=== PATIENT | male | born 1965 | race Caucasian/White ===

== ENCOUNTER 2018-02-11 20:09 | Inpatient (IN) | payer BC ==
[2018-02-11] MEDS ORDERED: SODIUM CHLORIDE 0.9% 1,000 ML IV STA (20:44)
[2018-02-11] MEDS ORDERED: KETOROLAC 30 MG/ML 1 ML VIAL IVP STA (20:44)
[2018-02-11 21:17] LABS: Basophils % (A) 0 %; Eosinophils # (A) 0.4 k/uL (0-0.7); Eosinophils % (A) 3 %; HCT 51.1 % (39.0-53.0); HGB 17.5 gm/dL (13.0-17.5); Lymphocytes # (A) 2.2 k/uL (1.0-4.8); Lymphocytes % (A) 16 %; MCH 30.2 pg (25.0-35.0); MCHC 34.3 g/dL (31.0-37.0); Mean Platelet Volume 6.9; Monocytes # (A) 0.8 k/uL (0-1.0); Monocytes % (A) 6 %; Neutrophils # (A) 9.9 k/uL (1.3-7.7); Neutrophils % (A) 74 %; Platelet Count 229 k/uL (150-450); RBC 5.81 m/uL (4.30-5.90); RDW 13.3 % (11.5-15.5); WBC 13.5 k/uL (3.8-10.6)
[2018-02-11 21:26] LABS: ALT 27 U/L (21-72); AST 18 U/L (17-59); Albumin 3.9 g/dL (3.5-5.0); Alkaline Phosphatase 90 U/L (38-126); Anion Gap 12 mmol/L; Blood Urea Nitrogen 14 mg/dL (9-20); Calcium 9.5 mg/dL (8.4-10.2); Carbon Dioxide 23 mmol/L (22-30); Chloride 103 mmol/L (98-107); Glucose 216 mg/dL (74-99); Sodium 138 mmol/L (137-145); Total Bilirubin 0.8 mg/dL (0.2-1.3); Total Protein 7.2 g/dL (6.3-8.2)
--- NOTE | 2018-02-11 21:32 | ED ---
Abdominal Pain HPI - General Chief Complaint: Abdominal Pain Stated Complaint: Abdominal Pain Time Seen by Provider: 02/11/18 20:17 Source: patient, RN notes reviewed, old records reviewed Mode of arrival: ambulatory Limitations: no limitations - History of Present Illness Initial Comments: This patient is a 52-year-old male presents emergency Department chief complaint of not having a full bowel movement over the past 6 days. He reports that he has had some clear watery diarrhea however. He reports that he has had no previous history of comes patient. Surgical history includes cholecystectomy , and he did have a colonoscopy last year by Dr. Bowman. Patient reports that he's had chills but denies any fever. He states that he has been increasingly worse over the past day but he has been unable to sleep due to the pain for the past week. Patient states that he tried laxative and was only able to produce the watery stools. Patient reports no vomiting. He reports that he's had an increase in belching as well. No vomiting. Upon further questioning Patient also relates that he does drink approximately half fifth 4 times a week. - Related Data Home Medications Medication Instructions Recorded Confirmed Carvedilol [Coreg] 6.25 mg PO BID 07/31/14 02/11/18 Digoxin [Lanoxin] 250 mcg PO DAILY 07/31/14 02/11/18 Spironolactone [Aldactone] 25 mg PO QAM 07/31/14 02/11/18 metFORMIN HCL [Glucophage] 1,000 mg PO DAILY 05/18/15 02/11/18 Benazepril [Lotensin] 10 mg PO BID 09/22/16 02/11/18 Liraglutide [Victoza 2-Maury] 0.9 mg SQ DAILY 09/22/16 02/11/18 metFORMIN HCL [Glucophage] 500 mg PO HS 09/22/16 02/11/18 Aspirin 162.5 mg PO DAILY 02/11/18 02/11/18 Allergies Allergy/AdvReac Type Severity Reaction Status Date / Time No Known Allergies Allergy Verified 02/11/18 20:30 Review of Systems ROS Statement: Those systems with pertinent positive or pertinent negative responses have been documented in the HPI. ROS Other: All systems not noted in ROS Statement are negative. Past Medical History Past Medical History: Diabetes Mellitus, Hyperlipidemia, Hypertension History of Any Multi-Drug Resistant Organisms: None Reported Additional Past Surgical History / Comment(s): right 2nd toe amputation, eye surgery Past Psychological History: No Psychological Hx Reported Smoking Status: Current every day smoker Past Alcohol Use History: Daily Past Drug Use History: None Reported - Past Family History Mother Family Medical History: No Reported History General Exam - General Exam Comments Initial Comments: This patient is a pleasant 52-year-old male. No acute distress. Limitations: no limitations General appearance: alert, in no apparent distress Head exam: Present: atraumatic, normocephalic, normal inspection Eye exam: Present: normal appearance, PERRL, EOMI. Absent: scleral icterus, conjunctival injection, periorbital swelling ENT exam: Present: normal exam, mucous membranes moist Neck exam: Present: normal inspection. Absent: tenderness, meningismus, lymphadenopathy Respiratory exam: Present: normal lung sounds bilaterally. Absent: respiratory distress, wheezes, rales, rhonchi, stridor Cardiovascular Exam: Present: regular rate, normal rhythm, normal heart sounds. Absent: systolic murmur, diastolic murmur, rubs, gallop, clicks GI/Abdominal exam: Present: soft, tenderness (Right lower quadrant tenderness), hyperactive bowel sounds. Absent: distended, guarding, rebound, rigid, normal bowel sounds Extremities exam: Present: normal inspection, full ROM, normal capillary refill. Absent: tenderness, pedal edema, joint swelling, calf tenderness Back exam: Present: normal inspection Neurological exam: Present: alert, oriented X3, CN II-XII intact Psychiatric exam: Present: normal affect, normal mood Skin exam: Present: warm, dry, intact, normal color. Absent: rash Course Vital Signs 02/11/18 02/11/18 20:13 21:44 Temperature 97.4 F L Pulse Rate 102 H 83 Respiratory 20 18 Rate Blood Pressure 125/92 136/76 O2 Sat by Pulse 100 96 Oximetry Medical Decision Making - Medical Decision Making This patient is a 52-year-old male presents emergency room chief complaint of not able to have a bowel movement and lower abdominal pain for the past 6 days. He did have some right lower quadrant tenderness. He reports no fever but did say he was slightly chilled. He did test and tenderness on exam. He was given IV fluids labwork obtained. An expectantly patient was found to have very elevated amylase and lipase of 640 and 19,000 respectively. Upon further questioning he does relate that he drinks proximally half fifths 4 times a week patient then underwent computed tomography scan. CT did show some mild inflammatory changes around the pancreas but no other significant findings to relate her patient's abdominal pain, and changes in bowel habits. At this time with the elevated amylase and lipase keep the patient in the hospital for IV hydration. Nothing by mouth. I'll also order Ativan protocol patient started to go through withdrawals. Discussed with Lubna alas nurse practitioner for [facility]. - Lab Data Result diagrams: 02/11/18 21:05 02/11/18 21:05 Lab Results 02/11/18 02/11/18 02/11/18 Range/Units 21:05 21:05 21:37 WBC 13.5 H (3.8-10.6) k/uL RBC 5.81 (4.30-5.90) m/uL Hgb 17.5 (13.0-17.5) gm/dL Hct 51.1 (39.0-53.0) % MCV 88.0 (80.0-100.0) fL MCH 30.2 (25.0-35.0) pg MCHC 34.3 (31.0-37.0) g/dL RDW 13.3 (11.5-15.5) % Plt Count 229 (150-450) k/uL Neutrophils % 74 % Lymphocytes % 16 % Monocytes % 6 % Eosinophils % 3 % Basophils % 0 % Neutrophils # 9.9 H (1.3-7.7) k/uL Lymphocytes # 2.2 (1.0-4.8) k/uL Monocytes # 0.8 (0-1.0) k/uL Eosinophils # 0.4 (0-0.7) k/uL Basophils # 0.0 (0-0.2) k/uL Sodium 138 (137-145) mmol/L Potassium 4.0 (3.5-5.1) mmol/L Chloride 103 (98-107) mmol/L Carbon Dioxide 23 (22-30) mmol/L Anion Gap 12 mmol/L BUN 14 (9-20) mg/dL Creatinine 0.75 (0.66-1.25) mg/dL Est GFR (CKD-EPI)AfAm >90 (>60 ml/min/1.73 sqM) Est GFR (CKD-EPI)NonAf >90 (>60 ml/min/1.73 sqM) Glucose 216 H (74-99) mg/dL Calcium 9.5 (8.4-10.2) mg/dL Total Bilirubin 0.8 (0.2-1.3) mg/dL AST 18 (17-59) U/L ALT 27 (21-72) U/L Alkaline Phosphatase 90 (38-126) U/L Total Protein 7.2 (6.3-8.2) g/dL Albumin 3.9 (3.5-5.0) g/dL Amylase 671 H* (30-110) U/L Lipase 81069 H (23-300) U/L Urine Color Yellow Urine Appearance Clear (Clear) Urine pH 5.5 (5.0-8.0) Ur Specific Irving 1.022 (1.001-1.035) Urine Protein Trace H (Negative) Urine Glucose (UA) 3+ H (Negative) Urine Ketones Negative (Negative) Urine Blood Negative (Negative) Urine Nitrite Negative (Negative) Urine Bilirubin Negative (Negative) Urine Urobilinogen <2.0 (<2.0) mg/dL Ur Leukocyte Esterase Negative (Negative) - Radiology Data Radiology results: report reviewed There is left renal cortical cyst is increased compared to old exam. Pain increases diffusely increased compared to old exam the could relate to nonspecific bowel inflammatory process. No pancreatic mass seen. No dilated ducts. No cause for lower abdominal pain. Disposition Clinical Impression: Pancreatitis, History of ETOH abuse Disposition: ADMITTED IP TO THIS [facility] Condition: Stable Referrals: Chris Barros DO [Primary Care Provider] - 1-2 days Time of Disposition: 22:40
[2018-02-11 21:38] LABS: Amylase 671 U/L (30-110)
[2018-02-11] MEDS ORDERED: RX INFO: IV CONTRAST WAS GIVEN 1 EACH MISC MISCELLANE PRN (21:38)
[2018-02-11 21:40] LABS: Appearance,Urine Clear (Clear); Bilirubin,Urine Negative (Negative); Blood,Urine Negative (Negative); Color,Urine Yellow; Glucose,Urine (UA) 3+ (Negative); Ketones,Urine Negative (Negative); Leukocyte Esterase,Urine Negative (Negative); Nitrite,Urine Negative (Negative); PH, Urine 5.5 (5.0-8.0); Protein,Urine Trace (Negative); Specific Gravity,Urine 1.022 (1.001-1.035); Urobilinogen,Urine <2.0 mg/dL (<2.0)
--- NOTE | 2018-02-11 21:40 | XR ---
EXAMINATION TYPE: XR KUB DATE OF EXAM: 02/11/2018 COMPARISON: 05/18/2015 HISTORY: Abdominal pain TECHNIQUE: 3 views FINDINGS: There is no sign of intestinal obstruction or pneumoperitoneum. Fecal pattern is normal. Abdon wel gas pattern appears normal. Lung bases are clear. There are no pathologic calcifications over the kidneys. IMPRESSION: Nonacute abdomen. No change.
[2018-02-11 21:46] LABS: Lipase 19002 U/L (23-300)
--- NOTE | 2018-02-11 22:21 | CT ---
EXAMINATION TYPE: CT abdomen pelvis w con DATE OF EXAM: 02/11/2018 COMPARISON: 05/18/2015 HISTORY: Abdominal pain CT DLP: mGycm Automated exposure control for dose reduction was used. TECHNIQUE: Helical acquisition of images was performed from the lung bases through the pelvis. CONTRAST: The contrast was Omnipaque 100 mL. FINDINGS: Lung bases are clear of consolidation. There is no pleural effusion. There is no pericardial effusion . Heart is borderline enlarged. Liver and spleen appear normal. Bile ducts are not dilated. Gallbladder is absent. There is very slight bulkiness of the pancreas. This is a change compared to old exam. There is sugge stion of minimal edema in the peripancreatic fat. There is no adrenal mass. Kidneys show satisfactory contrast opacification. There is a 2 cm cyst in t he lateral left kidney. There is no hydronephrosis. There is no retroperitoneal adenopathy. There is no ascites. I see no intestinal wall thickening. There are no dilated loops. I see no sign of appendi citis. The bony structures are intact. There is some spurring in the lumbar spine. I see no focal bon y destructive process. IMPRESSION: THERE IS A LEFT RENAL CORTICAL CYSTS THAT IS INCREASED COMPARED TO OLD EXAM. PANCREAS IS DIFFUSELY IN CREASED COMPARED TO OLD EXAM THAT COULD RELATE TO NONSPECIFIC MILD INFLAMMATORY PROCESS. NO PANCREATI C MASS SEEN. NO DILATED DUCTS. I DO NOT SEE A CAUSE FOR LOWER ABDOMINAL PAIN.
[2018-02-11] MEDS: SODIUM CHLORIDE 0.9% 1,000 ML IV SCH (22:28)
[2018-02-11] MEDS ORDERED: LORazepam 2 MG/ML INJ IV PRN ×3 (22:34)
[2018-02-11] MEDS ORDERED: THIAMINE 100 MG/ML 2 ML VIAL IM STA (22:34)
[2018-02-11] MEDS ORDERED: KETOROLAC 30 MG/ML 1 ML VIAL IVP PRN (22:37)
[2018-02-11] MEDS ORDERED: HYDROmorphone 0.5 MG/0.5 ML SYRINGE IVP PRN (22:37)
[2018-02-11] MEDS ORDERED: ONDANSETRON 4 MG/2 ML VIAL IVP PRN (22:37)
[2018-02-11] MEDS ORDERED: NALOXONE 0.4 MG/ML 1 ML VIAL IV PRN (22:37)
[2018-02-11] MEDS ORDERED: MORPHINE SULFATE 4 MG/ML SYRINGE IV PRN (22:37)
[2018-02-12] MEDS ORDERED: NICOTINE 21MG/24HR PATCH TRANSDERM STA (00:38)
[2018-02-12] MEDS: THIAMINE 100 MG TAB PO SCH ×3 (03:58→18:08)
[2018-02-12 06:25] VITALS: BMI 29.4
[2018-02-12 07:07] LABS: Glucose,Whole Blood 141 mg/dL (75-99)
[2018-02-12] MEDS: metFORMIN 500 MG TAB PO SCH ×2 (09:52→21:29)
[2018-02-12] MEDS: PANTOPRAZOLE 40 MG/10 ML VIAL IV SCH (09:52)
[2018-02-12] MEDS: CARVEDILOL 6.25 MG TAB PO SCH ×2 (09:53→18:08)
[2018-02-12] MEDS: SODIUM CHLORIDE 0.9% 1,000 ML IV SCH ×2 (09:53→18:08)
[2018-02-12] MEDS: LISINOPRIL 20 MG TAB PO SCH (09:54)
[2018-02-12] MEDS: LIRAGLUTIDE SQ SCH (09:54)
[2018-02-12] MEDS: ASPIRIN 81 MG PO SCH (09:55)
[2018-02-12] MEDS: DIGOXIN 250 MCG TAB PO SCH (09:55)
[2018-02-12] MEDS: SPIRONOLACTONE 25 MG TAB PO SCH (09:55)
[2018-02-12] MEDS ORDERED: IOHEXOL 350 MG/ML 25 ML BOTTLE (ORAL USE) PO PRN (10:51)
[2018-02-12 11:40] LABS: Glucose,Whole Blood 128 mg/dL (75-99)
[2018-02-12 17:18] LABS: Glucose,Whole Blood 133 mg/dL (75-99)
[2018-02-12] MEDS ORDERED: TEMAZEPAM 15 MG CAP PO PRN (17:35)
[2018-02-12] MEDS: MEROPENEM 2 GM in SODIUM CHLORIDE 0.9% 100 ML IVPB SCH (18:40)
--- NOTE | 2018-02-12 19:04 | HP ---
HISTORY AND PHYSICAL DATE OF SERVICE: 02/12/2018 I am covering for Dr. Barros. CHIEF COMPLAINT: Abdominal pain. HISTORY OF PRESENT ILLNESS: This 52-year-old gentleman being followed by Dr. Barros in the outpatient setting has a history of chest pain, diabetes mellitus, hypertension, hyperlipidemia. Patient apparently has a significant history of alcohol intake, also. The patient was complaining of abdominal pain. The patient was also complaining of some watery diarrhea. The pain was felt in the upper abdomen, a bandlike feeling, and in the ER the patient underwent a CT scan of the abdomen and pelvis which showed a left renal cortical cyst that had increased apparently and diffuse pancreatic nonspecific inflammation. The patient also had multiple evaluations which showed WBC 13.5, amylase 671, lipase 19,002. Patient was admitted for evaluation and treatment. There is no history of any fever, rigor or chills. No history of headache, loss of consciousness, seizures at this time. PAST MEDICAL HISTORY: 1. History of diabetes mellitus. 2. Hypertension. 3. Hyperlipidemia. 4. History of chest pain. MEDICATIONS PRIOR TO ADMISSION: 1. Metformin 500 mg p.o. at bedtime. 2. Glucophage 1000 mg p.o. daily. 3. Aldactone 25 mg p.o. each morning. 4. Victoza 0.9 subcutaneously daily. 5. Lanoxin 250 mcg p.o. daily. 6. Coreg 6.25 mg p.o. b.i.d. 7. Lotensin 10 mg p.o. b.i.d. 8. Aspirin 162.5 mg p.o. daily. ALLERGIES: NONE. FAMILY HISTORY: No history of strokes or MIs in the family. SOCIAL HISTORY: History of smoking. Alcohol as mentioned. REVIEW OF SYSTEMS: ENT: No diminished hearing. No diminished vision. CARDIOVASCULAR SYSTEM: As mentioned earlier. RESPIRATORY SYSTEM: As mentioned earlier. GI: As mentioned earlier. : No dysuria or retention. NERVOUS SYSTEM: No numbness, weakness. ALLERGY/IMMUNOLOGY: No asthma, hayfever. MUSCULOSKELETAL: As mentioned earlier. HEMATOLOGY/ONCOLOGY: No history of anemia. ENDOCRINE: Diabetes mellitus. CONSTITUTIONAL: As mentioned earlier. DERMATOLOGY: Negative. RHEUMATOLOGY: Negative. PSYCHIATRY: As mentioned earlier. PHYSICAL EXAMINATION: Patient is alert, oriented x3. The pulse is 75, blood pressure 122/73, respiration 18, temperature 97 degrees, pulse ox 94% on room air. HEENT: Conjunctivae normal. NECK: No jugular venous distention. CARDIOVASCULAR SYSTEM: S1, S2 muffled. RESPIRATORY SYSTEM: Breath sounds diminished at the bases. A few scattered rhonchi and crackles. ABDOMEN: Soft. Mild diffuse tenderness in the epigastrium present. No mass palpable. LEGS: No edema. No swelling. NERVOUS SYSTEM: Higher functions as mentioned earlier. Moves all 4 limbs. No focal motor or sensory deficit. LYMPHATICS: No lymph node palpable in neck, axillae or groin. SKIN: No ulcer, rash, bleeding. LABS: WBC 13.4, hemoglobin 17.5. Amylase 671, lipase 19,002. ASSESSMENT: 1. Acute severe pancreatitis with abdominal pain. 2. History of ethanol. 3. Increased white count. 4. Diabetes mellitus, type 2. 5. Hypertension. 6. Hyperlipidemia. 7. History of cholecystectomy. 8. History of cardiac catheterization. 9. History of right second toe amputation. 10.History of nicotine dependence. 11.FULL CODE. RECOMMENDATIONS AND DISCUSSION: In this 52-year-old gentleman who presented with multiple complex medical issues, we will monitor the patient closely, continue the current medications, continue with symptomatic treatment. Otherwise at this time I recommend monitoring blood sugars closely. Otherwise, IV fluids. I also recommend repeat labs and a surgical evaluation. CT scan did not show any gallstones obviously. I would also recommend resuming the home medications and CIWA protocol. Will increase the IV fluids. CT scan is reviewed. Further recommendations to follow. ANURADHA / HARJEET: [id number] /
[2018-02-12 20:02] LABS: Glucose,Whole Blood 149 mg/dL (75-99)
[2018-02-12] MEDS ORDERED: MORPHINE ORAL SOLN 10 MG/5 ML CUP PO PRN (20:08)
[2018-02-12] MEDS: HEPARIN SODIUM,PORCINE 5,000 UNIT/ML 1 ML VIAL SQ SCH (21:29)
[2018-02-12] MEDS: ALPRAZolam 0.25 MG TAB PO PRN (21:33)
[2018-02-13] MEDS: MEROPENEM 2 GM in SODIUM CHLORIDE 0.9% 100 ML IVPB SCH ×3 (00:46→16:06)
[2018-02-13] MEDS: SODIUM CHLORIDE 0.9% 1,000 ML IV SCH ×3 (04:16→23:47)
[2018-02-13 07:12] LABS: Glucose,Whole Blood 136 mg/dL (75-99)
[2018-02-13 07:42] LABS: Basophils # (A) 0.1 k/uL (0-0.2); Basophils % (A) 1 %; Eosinophils # (A) 0.3 k/uL (0-0.7); Eosinophils % (A) 3 %; HCT 50.6 % (39.0-53.0); HGB 17.1 gm/dL (13.0-17.5); Lymphocytes % (A) 19 %; MCH 29.9 pg (25.0-35.0); MCHC 33.9 g/dL (31.0-37.0); MCV 88.3 fL (80.0-100.0); Mean Platelet Volume 6.9; Monocytes # (A) 0.4 k/uL (0-1.0); Monocytes % (A) 4 %; Neutrophils # (A) 7.7 k/uL (1.3-7.7); Neutrophils % (A) 72 %; Platelet Count 206 k/uL (150-450); RBC 5.73 m/uL (4.30-5.90); RDW 13.2 % (11.5-15.5); WBC 10.7 k/uL (3.8-10.6)
[2018-02-13] MEDS: LISINOPRIL 20 MG TAB PO SCH (07:50)
[2018-02-13] MEDS: metFORMIN 500 MG TAB PO SCH ×2 (07:50→21:12)
[2018-02-13] MEDS: NICOTINE 14MG/24HR PATCH TRANSDERM SCH (07:50)
[2018-02-13] MEDS: SPIRONOLACTONE 25 MG TAB PO SCH (07:51)
[2018-02-13] MEDS: CARVEDILOL 6.25 MG TAB PO SCH ×2 (07:51→17:30)
[2018-02-13] MEDS: DIGOXIN 250 MCG TAB PO SCH (07:51)
[2018-02-13] MEDS: ASPIRIN 81 MG PO SCH (07:51)
[2018-02-13 08:06] LABS: ALT 27 U/L (21-72); AST 18 U/L (17-59); Albumin 3.5 g/dL (3.5-5.0); Alkaline Phosphatase 67 U/L (38-126); Amylase 258 U/L (30-110); Anion Gap 11 mmol/L; Blood Urea Nitrogen 8 mg/dL (9-20); Calcium 8.8 mg/dL (8.4-10.2); Carbon Dioxide 22 mmol/L (22-30); Chloride 109 mmol/L (98-107); Glucose 107 mg/dL (74-99); Potassium 4.3 mmol/L (3.5-5.1); Sodium 142 mmol/L (137-145); Total Bilirubin 1.7 mg/dL (0.2-1.3); Total Protein 6.5 g/dL (6.3-8.2)
[2018-02-13 08:17] VITALS: RESP 18
[2018-02-13 08:19] LABS: Lipase 3178 U/L (23-300)
[2018-02-13] MEDS: LIRAGLUTIDE SQ SCH (09:02)
[2018-02-13] MEDS: HEPARIN SODIUM,PORCINE 5,000 UNIT/ML 1 ML VIAL SQ SCH ×2 (09:02→21:12)
--- NOTE | 2018-02-13 10:42 | P.GSCN ---
History of Present Illness Consult date: 02/13/18 Reason for Consult: Pancreatitis History of present illness: This a 52-year-old male who was admitted to the hospital complaints of epigastric abdominal pain. Patient's workup found have evidence of pancreatitis. Patient had previous laparoscopic ostectomy in the past. Patient drinking heavily prior to his admission. Past Medical History Past Medical History: Chest Pain / Angina, Diabetes Mellitus, Hyperlipidemia, Hypertension History of Any Multi-Drug Resistant Organisms: None Reported Past Surgical History: Cholecystectomy, Heart Catheterization Additional Past Surgical History / Comment(s): right 2nd toe amputation, eye surgery Past Anesthesia/Blood Transfusion Reactions: No Reported Reaction Past Psychological History: No Psychological Hx Reported Smoking Status: Current every day smoker Past Alcohol Use History: Daily Additional Past Alcohol Use History / Comment(s): pt. reports that he drinks half a fifth every other day Past Drug Use History: None Reported - Past Family History Mother Family Medical History: No Reported History Medications and Allergies Home Medications Medication Instructions Recorded Confirmed Type Carvedilol [Coreg] 6.25 mg PO BID 07/31/14 02/11/18 History Digoxin [Lanoxin] 250 mcg PO DAILY 07/31/14 02/11/18 History Spironolactone [Aldactone] 25 mg PO QAM 07/31/14 02/11/18 History metFORMIN HCL [Glucophage] 1,000 mg PO DAILY 05/18/15 02/11/18 History Benazepril [Lotensin] 10 mg PO BID 09/22/16 02/11/18 History Liraglutide [Victoza 2-Maury] 0.9 mg SQ DAILY 09/22/16 02/11/18 History metFORMIN HCL [Glucophage] 500 mg PO HS 09/22/16 02/11/18 History Aspirin 162.5 mg PO DAILY 02/11/18 02/11/18 History Allergies Allergy/AdvReac Type Severity Reaction Status Date / Time No Known Allergies Allergy Verified 02/11/18 20:30 Surgical - Exam Vital Signs Temp Pulse Resp BP Pulse Ox 97.4 F L 102 H 20 125/92 100 02/11/18 20:13 02/11/18 20:13 02/11/18 20:13 02/11/18 20:13 02/11/18 20:13 - General well developed, well nourished, no distress - Eyes PERRL - ENT normal pinna - Neck no masses - Respiratory normal expansion - Cardiovascular Rhythm: regular - Abdomen Abdomen: soft, non tender Results - Labs 02/13/18 06:33 02/13/18 06:33 Abnormal Lab Results - Last 24 Hours (Table) 02/12/18 02/12/18 02/12/18 Range/Units 11:38 17:13 20:00 WBC (3.8-10.6) k/uL Chloride (98-107) mmol/L BUN (9-20) mg/dL Glucose (74-99) mg/dL POC Glucose (mg/dL) 128 H 133 H 149 H (75-99) mg/dL Total Bilirubin (0.2-1.3) mg/dL Amylase (30-110) U/L Lipase (23-300) U/L 02/13/18 02/13/18 02/13/18 Range/Units 06:33 06:33 07:03 WBC 10.7 H (3.8-10.6) k/uL Chloride 109 H (98-107) mmol/L BUN 8 L (9-20) mg/dL Glucose 107 H (74-99) mg/dL POC Glucose (mg/dL) 136 H (75-99) mg/dL Total Bilirubin 1.7 H (0.2-1.3) mg/dL Amylase 258 H (30-110) U/L Lipase 3178 H (23-300) U/L Microbiology - Last 24 Hours (Table) 02/12/18 18:15 Urine Culture - Preliminary Urine,Voided Diabetes panel 02/13/18 Range/Units 06:33 Sodium 142 (137-145) mmol/L Potassium 4.3 (3.5-5.1) mmol/L Chloride 109 H (98-107) mmol/L Carbon Dioxide 22 (22-30) mmol/L BUN 8 L (9-20) mg/dL Creatinine 0.73 (0.66-1.25) mg/dL Glucose 107 H (74-99) mg/dL Calcium 8.8 (8.4-10.2) mg/dL AST 18 (17-59) U/L ALT 27 (21-72) U/L Alkaline Phosphatase 67 (38-126) U/L Total Protein 6.5 (6.3-8.2) g/dL Albumin 3.5 (3.5-5.0) g/dL Calcium panel 02/13/18 Range/Units 06:33 Calcium 8.8 (8.4-10.2) mg/dL Albumin 3.5 (3.5-5.0) g/dL Pituitary panel 02/13/18 Range/Units 06:33 Sodium 142 (137-145) mmol/L Potassium 4.3 (3.5-5.1) mmol/L Chloride 109 H (98-107) mmol/L Carbon Dioxide 22 (22-30) mmol/L BUN 8 L (9-20) mg/dL Creatinine 0.73 (0.66-1.25) mg/dL Glucose 107 H (74-99) mg/dL Calcium 8.8 (8.4-10.2) mg/dL Adrenal panel 02/13/18 Range/Units 06:33 Sodium 142 (137-145) mmol/L Potassium 4.3 (3.5-5.1) mmol/L Chloride 109 H (98-107) mmol/L Carbon Dioxide 22 (22-30) mmol/L BUN 8 L (9-20) mg/dL Creatinine 0.73 (0.66-1.25) mg/dL Glucose 107 H (74-99) mg/dL Calcium 8.8 (8.4-10.2) mg/dL Total Bilirubin 1.7 H (0.2-1.3) mg/dL AST 18 (17-59) U/L ALT 27 (21-72) U/L Alkaline Phosphatase 67 (38-126) U/L Total Protein 6.5 (6.3-8.2) g/dL Albumin 3.5 (3.5-5.0) g/dL Assessment and Plan Assessment: pancreatitis Plan: The patient pain has improved. His PEG tube is resolving. There is no surgical intervention. He'll be discharged home per medicine.
[2018-02-13 11:32] LABS: Glucose,Whole Blood 121 mg/dL (75-99)
[2018-02-13] MEDS: THIAMINE 100 MG TAB PO SCH ×2 (12:12→17:30)
[2018-02-13] MEDS: PANTOPRAZOLE 40 MG/10 ML VIAL IV SCH (12:12)
[2018-02-13 17:03] LABS: Glucose,Whole Blood 114 mg/dL (75-99)
--- NOTE | 2018-02-13 17:20 | PN ---
PROGRESS NOTE I am covering for Dr. Barros. DATE OF SERVICE: 02/13/2018 INTERVAL HISTORY: This 52-year-old gentleman was admitted with acute pancreatitis possibly secondary to alcohol, being closely monitored. No chest pain. No palpitations. Patient previously had a cholecystectomy. Surgery is following the patient closely. EXAM: Alert and oriented x3. Pulse 77, blood pressure 130/76, respirations 18, temperature 97.7, pulse ox 94% on room air. HEENT: Conjunctivae normal. NECK: No jugular venous distention. CARDIOVASCULAR: S1, S2 muffled. RESPIRATORY: Breath sounds diminished in the bases. No rhonchi. No crackles. ABDOMEN: Soft. Mild diffuse discomfort. No guarding. No rigidity. No mass palpable. LEGS: No edema. No swelling. NERVOUS SYSTEM: Nonfocal. LABS: WBC 10.7, hemoglobin 17.1. Glucose noted. Amylase is 258 lipase is 3178. ASSESSMENT: 1. Acute severe pancreatitis abdominal pain possibly secondary to EtOH. 2. History of EtOH. 3. Increased WBC. 4. Diabetes mellitus type 2. 5. History of cholecystectomy. 6. Hypertension. 7. Hyperlipidemia. 8. History of cardiac catheterization. 9. History of right 2nd toe amputation. 10.History of nicotine dependence. 11.FULL CODE. RECOMMENDATIONS AND DISCUSSION: Recommend to continue current medical management and symptomatic treatment. Otherwise at this time, we will advance diet and monitor closely. Repeat labs in the morning. Guarded prognosis because of multiple complex medical issues and further recommendations to follow. MMODL / IJN: [id number] /
[2018-02-13 21:40] LABS: Glucose,Whole Blood 159 mg/dL (75-99)
[2018-02-13 21:53] VITALS: TEMP 96.9
[2018-02-13] MEDS: ALPRAZolam 0.25 MG TAB PO PRN (23:09)
[2018-02-14] MEDS: MEROPENEM 2 GM in SODIUM CHLORIDE 0.9% 100 ML IVPB SCH ×2 (00:09→10:34)
[2018-02-14 08:10] LABS: Basophils % (A) 0 %; Eosinophils # (A) 0.3 k/uL (0-0.7); Eosinophils % (A) 3 %; HCT 46.4 % (39.0-53.0); HGB 15.2 gm/dL (13.0-17.5); Lymphocytes # (A) 2.1 k/uL (1.0-4.8); Lymphocytes % (A) 22 %; MCH 29.3 pg (25.0-35.0); MCHC 32.8 g/dL (31.0-37.0); MCV 89.3 fL (80.0-100.0); Mean Platelet Volume 7.2; Monocytes # (A) 0.5 k/uL (0-1.0); Monocytes % (A) 5 %; Neutrophils # (A) 6.4 k/uL (1.3-7.7); Neutrophils % (A) 68 %; Platelet Count 201 k/uL (150-450); RDW 13.3 % (11.5-15.5); WBC 9.5 k/uL (3.8-10.6)
[2018-02-14 08:13] LABS: Glucose,Whole Blood 107 mg/dL (75-99)
[2018-02-14 08:28] LABS: ALT 26 U/L (21-72); AST 14 U/L (17-59); Albumin 3.1 g/dL (3.5-5.0); Alkaline Phosphatase 65 U/L (38-126); Amylase 126 U/L (30-110); Anion Gap 7 mmol/L; Blood Urea Nitrogen 8 mg/dL (9-20); Calcium 8.5 mg/dL (8.4-10.2); Carbon Dioxide 26 mmol/L (22-30); Chloride 108 mmol/L (98-107); Glucose 98 mg/dL (74-99); Lipase 1701 U/L (23-300); Potassium 4.4 mmol/L (3.5-5.1); Sodium 141 mmol/L (137-145); Total Bilirubin 1.1 mg/dL (0.2-1.3)
[2018-02-14 08:57] VITALS: BP 141/86; PULSE 62
[2018-02-14] MEDS: PANTOPRAZOLE 40 MG/10 ML VIAL IV SCH (10:30)
[2018-02-14] MEDS: SPIRONOLACTONE 25 MG TAB PO SCH (10:30)
[2018-02-14] MEDS: DIGOXIN 250 MCG TAB PO SCH (10:31)
[2018-02-14] MEDS: CARVEDILOL 6.25 MG TAB PO SCH (10:31)
[2018-02-14] MEDS: LISINOPRIL 20 MG TAB PO SCH (10:31)
[2018-02-14] MEDS: ASPIRIN 81 MG PO SCH (10:31)
[2018-02-14] MEDS: metFORMIN 500 MG TAB PO SCH (10:31)
[2018-02-14] MEDS: HEPARIN SODIUM,PORCINE 5,000 UNIT/ML 1 ML VIAL SQ SCH (10:31)
[2018-02-14] MEDS: NICOTINE 14MG/24HR PATCH TRANSDERM SCH ×2 (10:32→10:35)
[2018-02-14] MEDS: LIRAGLUTIDE SQ SCH (10:54)
--- NOTE | 2018-02-14 11:27 | P.PN ---
Progress Note - Text Progress Note Date: 02/14/18 The patient feels much better today. He denies any significant abdominal pain. He is requesting a home. His lipase has dropped to 1701. On exam is lesser stable. His evidence soft. Resolving alcohol Armida Gates. Patient will be discharged home per medicine. He'll follow-up when necessary.
[2018-02-14] MEDS: SODIUM CHLORIDE 0.9% 1,000 ML IV SCH (13:05)
[2018-02-14] MEDS: THIAMINE 100 MG TAB PO SCH (13:05)
--- NOTE | 2018-02-15 09:22 | DS ---
DISCHARGE SUMMARY DATE OF SERVICE: 02/14/2018. FINAL DIAGNOSE: 1. Acute severe pancreatitis with abdominal pain, possibly secondary to ETOH. 2. History of ETOH. 3. Increased WBC. 4. Diabetes type 2. 5. History of cholecystectomy. 6. Hypertension. 7. Hyperlipidemia. 8. History of cardiac catheterization. 9. History of right 2nd toe amputation. 10.History of nicotine dependence. 11.FULL CODE. DISCHARGE CONDITION: The patient is being discharged in stable condition with guarded prognosis. HISTORY OF PRESENT ILLNESS: This 52-year-old gentleman with a past history of medical medical problems, being followed by Dr. Barros in the outpatient setting, admitted with abdominal pain and pancreatitis and possibly secondary to pancreatitis. Treated symptomatically. Surgery, Dr. Soto, saw the patient. Patient improved significantly. On exam, vital signs are stable. Cardiovascular S1 and S2 muffled. Abdomen is soft, nontender. No mass palpable. The patient is keen on going home. DISCHARGE INSTRUCTIONS: 1. Diet cardiac, soft, low-fat. 2. Activity limited. 3. Follow up with Dr. Soto as advised. 4. Follow up with Dr. Chris Barros in 2 to 3 days. FOLLOWUP LABS: CBC, amylase, lipase. DISCHARGE MEDICATIONS: 1. Ecotrin 165 mg p.o. daily. 2. Lotensin 10 mg p.o. b.i.d. 3. Coreg 6.25 mg p.o. b.i.d. 4. Lanoxin 0.5 mg p.o. daily. 5. Pepcid 20 mg p.o. daily. 6. Victoza 0.9 daily. 7. Ativan 1 mg t.i.d. p.r.n. 8. Glucophage 1000 mg b.i.d. 9. 2.5 mg at bedtime. 10.Multivitamin 1 p.o. daily. 11.Habitrol 14. 12.Aldactone 25 mg q.a.m. 13.Vitamin B1, 100 mg p.o. daily. Once again, the patient discharged in stable condition with guarded prognosis. MMODL / TJN: [id number] /
== END 2018-02-14 12:30 | disposition home or self-care (01) | DRG 440 ==
LOC: EC 20:09 → 5MS5E 22:36
PROVIDERS: ADMIT Family Medicine; ATTEND Family Medicine
DX: K85.20 Alcohol induced acute pancreatitis without necrosis or infection (principal); D72.829 Elevated white blood cell count, unspecified; E11.9 Type 2 diabetes mellitus without complications; E78.5 Hyperlipidemia, unspecified; F10.11 Alcohol abuse, in remission; F17.200 Nicotine dependence, unspecified, uncomplicated; I10 Essential (primary) hypertension; Z90.49 Acquired absence of other specified parts of digestive tract; Z89.421 Acquired absence of other right toe(s); Z79.84 Long term (current) use of oral hypoglycemic drugs; Z79.82 Long term (current) use of aspirin; Z79.899 Other long term (current) drug therapy
CPT/HCPCS: 36415; 74018; 74177; 80053; 80162; 81003; 82150; 83690; 85025; 87040; 87086; 96361; 96372; 96374; 99285

== ENCOUNTER 2018-04-11 18:24 | Emergency (ER) | payer BC ==
[2018-04-11 18:29] VITALS: TEMP 98.1
[2018-04-11] MEDS ORDERED: KETOROLAC 30 MG/ML 1 ML VIAL IVP STA (18:41)
[2018-04-11] MEDS ORDERED: SODIUM CHLORIDE 0.9% 500 ML IV ONE (18:41)
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
[2018-04-11 19:29] LABS: Basophils # (A) 0.1 k/uL (0-0.2); Basophils % (A) 0 %; Eosinophils # (A) 0.4 k/uL (0-0.7); Eosinophils % (A) 3 %; HCT 50.7 % (39.0-53.0); HGB 17.3 gm/dL (13.0-17.5); Lymphocytes # (A) 2.8 k/uL (1.0-4.8); Lymphocytes % (A) 19 %; MCH 29.9 pg (25.0-35.0); MCHC 34.1 g/dL (31.0-37.0); MCV 87.6 fL (80.0-100.0); Mean Platelet Volume 6.7; Monocytes # (A) 0.7 k/uL (0-1.0); Monocytes % (A) 5 %; Neutrophils # (A) 10.6 k/uL (1.3-7.7); Neutrophils % (A) 72 %; Platelet Count 259 k/uL (150-450); RBC 5.79 m/uL (4.30-5.90); RDW 14.4 % (11.5-15.5); WBC 14.8 k/uL (3.8-10.6)
[2018-04-11 19:35] LABS: ALT 37 U/L (21-72); AST 20 U/L (17-59); Albumin 3.9 g/dL (3.5-5.0); Alkaline Phosphatase 96 U/L (38-126); Anion Gap 11 mmol/L; Blood Urea Nitrogen 14 mg/dL (9-20); Calcium 9.6 mg/dL (8.4-10.2); Carbon Dioxide 29 mmol/L (22-30); Chloride 104 mmol/L (98-107); Glucose 115 mg/dL (74-99); Potassium 4.6 mmol/L (3.5-5.1); Sodium 144 mmol/L (137-145); Total Bilirubin 0.9 mg/dL (0.2-1.3); Total Protein 6.8 g/dL (6.3-8.2); Uric Acid 7.7 mg/dL (3.5-8.5)
--- NOTE | 2018-04-11 19:46 | XR ---
EXAMINATION TYPE: XR knee complete LT DATE OF EXAM: 04/11/2018 CLINICAL HISTORY: Left patellar knee pain TECHNIQUE: Three views of the left knee are obtained. COMPARISON: None. FINDINGS: There is no acute fracture/dislocation evident in left knee. There is mild medial compartm ent joint space narrowing. The overlying soft tissue appears unremarkable. Some fat stranding is see n in the infrapatellar fat pad. IMPRESSION: There is no acute fracture or dislocation in the left knee. This could represent infrapa tellar fat pad contusion, Hoffa's disease or other etiology. This could be further assessed with none mergent MRI.
[2018-04-11 20:18] LABS: Erythrocyte Sedimentation Rate 8 mm/hr (0-15)
[2018-04-11 21:17] VITALS: BP 137/74; PULSE 78; RESP 16
[2018-04-11 21:45] LABS: Appearance,BF Cloudy; Color,BF Red; Nucleated Cells, Body Fluid 2000 /uL; RBC, Body Fluid 148400 /uL
[2018-04-11 21:56] LABS: Mononuclear WBC,Body Fluid 35 %; Polynuclear WBC,Body Fluid 65 %; Total Cells Counted,Body Fluid 100
[2018-04-11] MEDS ORDERED: cefTRIAXone IN SWFI 2,000 MG/20 ML SYRINGE IVP STA (21:56)
[2018-04-11] MEDS ORDERED: ACET/COD 300 MG/30 MG STARTER PACK 6 TAB BTL PO STA (22:14)
== END 2018-04-11 22:28 | disposition home or self-care (01) ==
LOC: EC 18:24
DX: M25.462 Effusion, left knee (principal); L03.116 Cellulitis of left lower limb; D72.829 Elevated white blood cell count, unspecified; I10 Essential (primary) hypertension; E11.9 Type 2 diabetes mellitus without complications; F17.200 Nicotine dependence, unspecified, uncomplicated; Z79.82 Long term (current) use of aspirin; Z79.84 Long term (current) use of oral hypoglycemic drugs; Z79.899 Other long term (current) drug therapy; W22.8XXA Striking against or struck by other objects, initial encounter
CPT/HCPCS: 99283; 20610; 96374; 96375; 36415; 89060; 80053; 85652; 89050; 84550; 85025; 87040; 87070; 87205; 73562; J0696; J1885

== ENCOUNTER → 2018-07-22 | Outpatient (CLI) | payer BC ==
--- NOTE | 2018-07-23 07:09 | MR ---
EXAMINATION TYPE: MR knee RT wo con DATE OF EXAM: 07/22/2018 COMPARISON: Outside left knee x-ray July 13, 2018. HISTORY: Right knee pain and swelling for 3 months. TECHNIQUE: Multiplanar, multisequence images of the knee is performed without IV contrast. FINDINGS: MEDIAL MENISCUS: Anterior horn is intact without tear. Linear and triangular shaped increased signal posterior horn of medial meniscus does not extend to articular surface consistent with intrasubstance tear. LATERAL MENISCUS: Anterior and posterior horns are intact without tear. CRUCIATE LIGAMENTS: The anterior and posterior cruciate ligaments are intact and unremarkable. COLLATERAL LIGAMENTS: The medial collateral ligament and lateral collateral ligament complex are inta ct. Mild fluid signal surrounds superficial aspect of medial collateral ligament. EXTENSOR MECHANISM: Visualized quadriceps and patellar tendons are intact. EFFUSION: There is small to moderate-sized suprapatellar joint effusion. POPLITEAL CYST: There is small to moderate-sized popliteal/collado cyst measuring 5.3 cm in length sagi ttal image 9 with more prominent surrounding fluid extending inferiorly suggesting leak. TRICOMPARTMENT SPACES: There is mild to moderate tricompartment joint space loss with mild spurring. CARTILAGE: There is some thinning of articular cartilage medial tibiofemoral compartment. No signific ant chondral malacia patella. BONE MARROW SIGNAL: Heterogeneity is suggestive of red marrow reconversion. OTHER: Some cystic change posterior to the distal femur sagittal image 13 is noted near level of the popliteus tendon. IMPRESSION: 1. Intrasubstance tear posterior horn of medial meniscus. No full-thickness meniscal or ligamentous t ear is seen. 2. Background mild to moderate tricompartment degenerative changes most prominent medial tibiofemoral compartment likely product of osteoarthritis. 3. Small to moderate-sized suprapatellar joint effusion. 4. Small to moderate-sized leaking popliteal cyst. 5. Mild MCL sprain injury.
== END | disposition home or self-care (01) ==
LOC: RADMRIMAIN 17:02
PROVIDERS: ATTEND Orthopaedic Surgery
DX: S83.241A Other tear of medial meniscus, current injury, right knee, initial encounter (principal); S83.411A Sprain of medial collateral ligament of right knee, initial encounter; M71.21 Synovial cyst of popliteal space [Baker], right knee; M17.11 Unilateral primary osteoarthritis, right knee

== ENCOUNTER 2018-08-18 09:29 | Day surgery (SDC) | payer BC ==
[2018-08-11 10:36] VITALS: BMI 29.9
--- NOTE | 2018-08-17 17:16 | HP ---
HISTORY AND PHYSICAL REASON FOR ADMISSION: Surgery scheduled for 08/18/2018. HISTORY OF PRESENT ILLNESS: Jcarlos Nathan is a 53-year-old patient seen with progressive right knee pain. Treatment options were discussed. He elected to proceed with arthroscopy. Consent was obtained. PAST MEDICAL HISTORY: Hypertension, [id number] diabetes. SURGICAL HISTORY: Noncontributory. MEDICATIONS: Benazepril, Carvedilol, metformin, spironolactone. ALLERGIES: None. SOCIAL HISTORY: Patient currently smokes 1.5 pack of cigarettes per day. PHYSICAL EXAMINATION: Evaluation right knee range of motion 0 to 130 degrees. Tenderness medial joint line. Positive medial Elizabeth's. There is a moderate effusion present. Ligaments are stable. Hip rotation without pain. Distal neurovascular exam intact. RADIOGRAPHS: Revealed mild osteoarthritis. MRI of the right knee revealed a medial meniscal tear, osteoarthritic changes and effusion. IMPRESSION: Internal derangement, right knee with medial meniscal tear. PLAN: Right knee arthroscopy with partial meniscectomy and debridement. MMODL / IJN: [id number] /
[~2018-08-18 09:29] MED LIST: DEXAMETHASONE SOD PHOSPHATE 10 MG/ML 1 ML VIAL IV ONE; LACTATED RINGERS 1,000 ML IV SCH; LIDOCAINE 1% 20 ML VIAL (10MG/ML) FOR IV START INTRADERMA PRN; MIDAZOLAM 2 MG/2 ML VIAL IV PRN; ONDANSETRON 4 MG/2 ML VIAL IVP ONE; SCOPOLAMINE 1.5MG/72HR PATCH TRANSDERM ONE; ceFAZolin IN SWFI 2 GM/20 ML SYRINGE IVP ONE
[2018-08-18 11:12] LABS: Glucose,Whole Blood 107 mg/dL (75-99)
[2018-08-18] MEDS ORDERED: MIDAZOLAM 2 MG/2 ML VIAL ONE (11:33)
[2018-08-18] MEDS ORDERED: SUCCINYLCHOLINE CHLORIDE 100 MG/5 ML SYR IV ONE (11:33)
[2018-08-18] MEDS ORDERED: LIDOCAINE 1% INJ 10MG/ML (20 ML MDV) ONE (11:33)
[2018-08-18] MEDS ORDERED: PROPOFOL 10 MG/ML 20 ML VIAL IV ONE (11:33)
[2018-08-18] MEDS ORDERED: fentaNYL (PF) 50 MCG/ML 2 ML AMP ONE (11:33)
[2018-08-18] MEDS ORDERED: BUPIVACAIN-EPI 0.25%-1:200,000 30 ML VIAL SQ ONE (11:44)
[2018-08-18 12:33] VITALS: RESP 16; TEMP 97.4
--- NOTE | 2018-08-18 12:38 | P.OP ---
Date of Procedure: 08/18/18 Preoperative Diagnosis: Internal derangement right knee Postoperative Diagnosis: 1. Tear medial and lateral meniscus right knee 2. Grade 2 chondromalacia medial femoral condyle right knee 3. Medial plica right knee 4. Reactive synovitis medial and suprapatellar compartments right knee Procedure(s) Performed: 1. Arthroscopic partial medial and lateral meniscectomy right knee 2. Arthroscopic chondroplasty medial femoral condyle right knee 3. Arthroscopic resection medial plica right knee 4. Arthroscopic partial synovectomy medial and suprapatellar compartments right knee Anesthesia: CARLINEA, local Surgeon: Clay Thompson Estimated Blood Loss (ml): 5 Pathology: none sent Condition: stable Disposition: PACU Indications for Procedure: 53-year-old patient seen with progressive right knee pain. After having treatment options discussed, he elected to proceed with arthroscopy. Operative Findings: See description of procedure Description of Procedure: Patient was taken to the operative suite. Patient underwent a general anesthetic by the department of anesthesia. Patient was given preoperative antibiotics. The right lower extremity was placed in a well-padded arthroscopic leg hooks. The right leg was prepped and draped in the normal sterile orthopedic fashion. A lateral parapatellar and suprapatellar incision was made. Trochars were inserted. Arthroscopy was initiated. Suprapatellar pouch revealed diffuse thick reactive synovitis. The patellofemoral joint appeared to articulate congruently. There was grade 1 chondromalacia changes of the patella with no osteochondral tears present. The scope was guided into the medial gutter. There was a large medial plica which impinged along the medial femoral condyle with range of motion. The scope was then guided into the medial compartment. A medial parapatellar incision was made. Trocar inserted followed by probe. There was a radial tear involving the posterior horn of the medial meniscus. There were grade 2 chondromalacia changes of the medial femoral condyle with osteochondral tears present. There was reactive synovitis anteriorly. I performed a partial medial meniscectomy down to stable tissue. I performed a chondroplasty of the medial femoral condyle down to stable tissue. I performed a partial synovectomy decompressing the reactive synovitis. Scope and probe were then guided into the intercondylar notch. Cruciates were identified, probed and found to be stable. The scope and probe were then guided into lateral compartment. There was a radial tear involving the mid body of the lateral meniscus. There were mild grade 1 chondromalacia changes of the tibial plateau with no osteochondral tears present. There was no reactive synovitis present. I performed a partial lateral meniscectomy down to stable tissue. The residual meniscus was stable. The scope was in guided back into the suprapatellar compartment. I introduced a motorized shaver into the super patellar compartment. I resected that medial plica. I performed a partial synovectomy. The shaver was removed. I took the knee through range of motion and noted good resection of the medial plica and no impingement. There was good decompression of the reactive synovitis. I took one more look on the entire knee, no residual debris. Instruments were now removed from the joint. The joint was infiltrated with .25% Marcaine. Steri-Strips were applied to the portal sites. Sterile dressings were applied. The patient was placed into a JOSUÉ hose. No tourniquet was utilized. The patient was awakened, transferred to a bed and taken to recovery stable satisfactory condition.
[2018-08-18] MEDS: HYDROmorphone 0.5 MG/0.5 ML SYRINGE IVP PRN ×2 (12:45→12:50)
[2018-08-18] MEDS ORDERED: HYDROcodone/APAP 5-325MG 1 EACH TAB PO ONE (13:47)
[2018-08-18 14:13] VITALS: BP 122/76; PULSE 75
== END 2018-08-18 14:30 | disposition home or self-care (01) ==
LOC: OR 09:29
PROVIDERS: ATTEND Orthopaedic Surgery
DX: S83.241A Other tear of medial meniscus, current injury, right knee, initial encounter (principal); S83.281A Other tear of lateral meniscus, current injury, right knee, initial encounter; X58.XXXA Exposure to other specified factors, initial encounter; M22.41 Chondromalacia patellae, right knee; M67.51 Plica syndrome, right knee; M65.861 Other synovitis and tenosynovitis, right lower leg; I10 Essential (primary) hypertension; E78.5 Hyperlipidemia, unspecified; E11.9 Type 2 diabetes mellitus without complications; Z79.84 Long term (current) use of oral hypoglycemic drugs; F17.210 Nicotine dependence, cigarettes, uncomplicated; Z79.899 Other long term (current) drug therapy
CPT/HCPCS: 29880; J2250; J1100; J2405; J2001; J3010; J0330; J2704; J1170; J0690

== ENCOUNTER 2023-05-02 10:47 | Emergency (ER) | payer BC ==
[2023-05-02] MEDS ORDERED: LIDOCAINE 5% PATCH TOPICAL ONE (11:13)
--- NOTE | 2023-05-02 11:24 | ED ---
Back Pain HPI - General Chief Complaint: Back Pain/Injury Stated Complaint: lower back pain Time Seen by Provider: 05/02/23 10:56 Source: patient, RN notes reviewed Limitations: no limitations - History of Present Illness Initial Comments: This is a 57-year-old male who presents to the emergency department for left lower back pain. Patient states that it started 2 days ago. He describes this as dull and aching in nature. Denies any known injuries. His has been applying lidocaine patches, which has been helpful. He is otherwise not taking any medication to treat his pain. Denies any loss of bowel/bladder control or saddle anesthesia. Denies any chest pain or shortness of breath. Also denies any urinary symptoms. Denies any fevers, chills, sore throat, cough, dyspnea, chest pain, palpitations, abdominal pain, nausea, vomiting, diarrhea, or headaches. MD Complaint: back pain Onset/Timin -: days(s) - Related Data Home Medications Medication Instructions Recorded Confirmed Digoxin [Lanoxin] 250 mcg PO DAILY 07/31/14 08/18/18 Spironolactone [Aldactone] 25 mg PO QAM 07/31/14 08/18/18 carvediloL [Coreg] 6.25 mg PO BID 07/31/14 08/18/18 metFORMIN HCL [Glucophage] 1,000 mg PO DAILY 05/18/15 08/18/18 Benazepril [Lotensin] 10 mg PO BID 09/22/16 08/18/18 Liraglutide [Victoza 2-Maury] 1 applic SQ DAILY PRN 09/22/16 08/18/18 metFORMIN HCL [Glucophage] 500 mg PO HS 09/22/16 08/18/18 Aspirin 325 mg PO DAILY 08/11/18 08/18/18 Previous Rx's Medication Instructions Recorded Multivitamins, Thera [Multivitamin] 1 tab PO DAILY #30 tablet 02/14/18 Hydrocodone/Acetaminophen [[place] 1 each PO Q6HR PRN #28 tab 08/18/18 5-325] Lidocaine 5% Patch [Lidoderm 5% 1 patch TOPICAL DAILY PRN #30 patch 05/02/23 Patch] Allergies Allergy/AdvReac Type Severity Reaction Status Date / Time No Known Allergies Allergy Verified 05/02/23 10:53 Review of Systems ROS Statement: Those systems with pertinent positive or pertinent negative responses have been documented in the HPI. ROS Other: All systems not noted in ROS Statement are negative. Past Medical History Past Medical History: Chest Pain / Angina, Diabetes Mellitus, Hyperlipidemia, Hypertension History of Any Multi-Drug Resistant Organisms: None Reported Past Surgical History: Cholecystectomy, Heart Catheterization Additional Past Surgical History / Comment(s): right 2nd toe amputation, eye surgery Past Anesthesia/Blood Transfusion Reactions: No Reported Reaction Past Psychological History: No Psychological Hx Reported Smoking Status: Current every day smoker Past Alcohol Use History: Daily Past Drug Use History: None Reported - Past Family History Mother Family Medical History: No Reported History General Exam Limitations: no limitations General appearance: alert, in no apparent distress Head exam: Present: atraumatic, normocephalic, normal inspection Respiratory exam: Present: normal lung sounds bilaterally. Absent: respiratory distress, wheezes, rales, rhonchi, stridor Cardiovascular Exam: Present: regular rate, normal rhythm, normal heart sounds. Absent: systolic murmur, diastolic murmur, rubs, gallop, clicks Back exam: Present: normal inspection, other (There is no tenderness to palpation over the area of pain in the left lower back) Neurological exam: Present: alert, oriented X3, CN II-XII intact Psychiatric exam: Present: normal affect, normal mood Skin exam: Present: warm, dry, intact, normal color. Absent: rash Course Vital Signs 05/02/23 05/02/23 10:52 15:00 Temperature 98.5 F 97.9 F Pulse Rate 91 76 Respiratory 20 16 Rate Blood Pressure 113/75 118/76 O2 Sat by Pulse 99 99 Oximetry Medical Decision Making - Medical Decision Making This is a 57-year-old male who presents to the emergency department for back pain. Was pt. sent in by a medical professional or institution? @ -No Did you speak to anyone other than the patient for history? @ -No Did you review nursing and triage notes? @ -Yes, and I agree, it is accurate with regards to the patient's symptoms. Were old charts reviewed? @ -No Differential Diagnosis? @ -Differential Back Pain: Strain, zoster, cauda equina syndrome, epidural abscess, vertebral osteomyelitis , discitis, fracture, subluxation, disc herniation, DJD, spinal stenosis, dissection, AAA, pancreatitis, peptic ulcer disease, pyelonephritis, kidney stone, this is not meant to be an all-inclusive list. EKG interpreted by me (3pts min.)? @ -Not obtained X-rays interpreted by me (1pt min.)? @ -Not obtained CT interpreted by me (1pt min.)? @ -Computed tomography scan of the abdomen and pelvis obtained. My interpretation identifies no evidence of bowel wall thickening or free air. U/S interpreted by me (1pt. min.)? @ -Not obtained What testing was considered but not performed? (CT, X-rays, U/S, labs)? Why? @ -None What meds were considered but not given? Why? @ -None Did you discuss the management of the patient with other professionals? @ -No Did you reconcile home meds? @ -No Was smoking cessation discussed for >3mins.? @ -No Was critical care preformed (if so, how long)? @ -No Were there social determinants of health that impacted care today? How? (Homelessness, low income, unemployed, alcoholism, drug addiction, transportation, low edu. Level, literacy, decrease access to med. care, usp, rehab)? @ -No Was there de-escalation of care discussed even if they declined? (Discuss DNR or withdrawal of care, Hospice)? @ -No What co-morbidities impacted this encounter? (DM, HTN, Smoking, COPD, CAD, Cancer, CVA, Hep., AIDS, mental health diagnosis, sleep apnea, morbid obesity)? @ -DM, HLD, HTN Was patient admitted / discharged? @ -Discharged. Given that there was no known injury and the pain was not reproducible, in combination with the patient's age and comorbidities, blood work and a computed tomography scan of the abdomen and pelvis was obtained to evaluate for any problems related to his aorta specifically. Lab work obtained and found to be relatively nonactionable, aside from an initially mildly elevated lactic acid. He was given a liter bolus of IV fluids. Computed tomography scan of the abdomen and pelvis obtained revealing no acute findings to account for his symptoms. Advised that this is likely musculoskeletal in nature. He does have a right renal cyst that has increased in size to some extent. Patient and his were made aware of this and advised that they need to follow-up with his primary care provider for reevaluation and discussion of repeat imaging if indicated. Prescription for lidocaine patches provided per the patient's request with dosing instructions reviewed. Also advised to alternate with ibuprofen and Tylenol as needed for additional pain relief. Prior to discharge, the patient required about a Covid test. States that he has felt sleepy and just ill for the last couple of days. Advised that we will swab him and contact him if anything returns positive. Patient's Covid test did return positive. He was contacted regarding this information. Undiagnosed new problem with uncertain prognosis? @ -None Drug Therapy requiring intensive monitoring for toxicity (Heparin, Nitro, Insulin, Cardizem)? @ -None Were any procedures done? @ -None Diagnosis/symptom? @ -Lower back pain, COVID-19 Acute, or Chronic, or Acute on Chronic? @ -Acute Uncomplicated (without systemic symptoms) or Complicated (systemic symptoms)? @ -Uncomplicated Side effects of treatment? @ -None Exacerbation, Progression, or Severe Exacerbation] @ -Not applicable Poses a threat to life or bodily function? @ -No Return precautions reviewed in depth, the patient is instructed to return to the emergency department with any new, worsening, or concerning symptoms. Patient verbalized understanding. This case was discussed in detail with the attending ED physician, Dr. Gillespie. Presentation, findings, and treatment plan discussed in detail as well. - Lab Data Result diagrams: 05/02/23 11:19 05/02/23 11:19 Lab Results 05/02/23 05/02/23 05/02/23 Range/Units 11:19 11:19 11:19 WBC 6.1 (3.8-10.6) k/uL RBC 4.70 (4.30-5.90) m/uL Hgb 14.2 (13.0-17.5) gm/dL Hct 42.2 (39.0-53.0) % MCV 89.8 (80.0-100.0) fL MCH 30.3 (25.0-35.0) pg MCHC 33.7 (31.0-37.0) g/dL RDW 12.9 (11.5-15.5) % Plt Count 179 (150-450) k/uL MPV 7.6 Neutrophils % 80 % Lymphocytes % 6 % Monocytes % 8 % Eosinophils % 3 % Basophils % 0 % Neutrophils # 4.9 (1.3-7.7) k/uL Lymphocytes # 0.4 L (1.0-4.8) k/uL Monocytes # 0.5 (0-1.0) k/uL Eosinophils # 0.2 (0-0.7) k/uL Basophils # 0.0 (0-0.2) k/uL Sodium 135 L (137-145) mmol/L Potassium 4.5 (3.5-5.1) mmol/L Chloride 99 (98-107) mmol/L Carbon Dioxide 23 (22-30) mmol/L Anion Gap 13 mmol/L BUN 18 (9-20) mg/dL Creatinine 1.23 (0.66-1.25) mg/dL Est GFR (CKD-EPI)AfAm 76 (>60 ml/min/1.73 sqM) Est GFR (CKD-EPI)NonAf 66 (>60 ml/min/1.73 sqM) Glucose 182 H (74-99) mg/dL Lactic Ac Sepsis Rflx Plasma Lactic Acid Malik (0.7-2.0) mmol/L Calcium 9.3 (8.4-10.2) mg/dL Total Bilirubin 0.8 (0.2-1.3) mg/dL AST 36 (17-59) U/L ALT 35 (4-49) U/L Alkaline Phosphatase 65 (38-126) U/L Total Protein 6.8 (6.3-8.2) g/dL Albumin 3.9 (3.5-5.0) g/dL Urine Color Yellow Urine Appearance Clear (Clear) Urine pH 5.5 (5.0-8.0) Ur Specific [place] 1.022 (1.001-1.035) Urine Protein Negative (Negative) Urine Glucose (UA) Negative (Negative) Urine Ketones Negative (Negative) Urine Blood Negative (Negative) Urine Nitrite Negative (Negative) Urine Bilirubin Negative (Negative) Urine Urobilinogen <2.0 (<2.0) mg/dL Ur Leukocyte Esterase Negative (Negative) Influenza Type A (PCR) (Not Detectd) Influenza Type B (PCR) (Not Detectd) RSV (PCR) (Not Detectd) SARS-CoV-2 (PCR) (Not Detectd) 05/02/23 05/02/23 05/02/23 Range/Units 11:19 11:50 14:26 WBC (3.8-10.6) k/uL RBC (4.30-5.90) m/uL Hgb (13.0-17.5) gm/dL Hct (39.0-53.0) % MCV (80.0-100.0) fL MCH (25.0-35.0) pg MCHC (31.0-37.0) g/dL RDW (11.5-15.5) % Plt Count (150-450) k/uL MPV Neutrophils % % Lymphocytes % % Monocytes % % Eosinophils % % Basophils % % Neutrophils # (1.3-7.7) k/uL Lymphocytes # (1.0-4.8) k/uL Monocytes # (0-1.0) k/uL Eosinophils # (0-0.7) k/uL Basophils # (0-0.2) k/uL Sodium (137-145) mmol/L Potassium (3.5-5.1) mmol/L Chloride (98-107) mmol/L Carbon Dioxide (22-30) mmol/L Anion Gap mmol/L BUN (9-20) mg/dL Creatinine (0.66-1.25) mg/dL Est GFR (CKD-EPI)AfAm (>60 ml/min/1.73 sqM) Est GFR (CKD-EPI)NonAf (>60 ml/min/1.73 sqM) Glucose (74-99) mg/dL Lactic Ac Sepsis Rflx Y Plasma Lactic Acid Malik 2.8 H* 1.0 (0.7-2.0) mmol/L Calcium (8.4-10.2) mg/dL Total Bilirubin (0.2-1.3) mg/dL AST (17-59) U/L ALT (4-49) U/L Alkaline Phosphatase (38-126) U/L Total Protein (6.3-8.2) g/dL Albumin (3.5-5.0) g/dL Urine Color Urine Appearance (Clear) Urine pH (5.0-8.0) Ur Specific [place] (1.001-1.035) Urine Protein (Negative) Urine Glucose (UA) (Negative) Urine Ketones (Negative) Urine Blood (Negative) Urine Nitrite (Negative) Urine Bilirubin (Negative) Urine Urobilinogen (<2.0) mg/dL Ur Leukocyte Esterase (Negative) Influenza Type A (PCR) (Not Detectd) Influenza Type B (PCR) (Not Detectd) RSV (PCR) (Not Detectd) SARS-CoV-2 (PCR) (Not Detectd) 05/02/23 Range/Units 14:26 WBC (3.8-10.6) k/uL RBC (4.30-5.90) m/uL Hgb (13.0-17.5) gm/dL Hct (39.0-53.0) % MCV (80.0-100.0) fL MCH (25.0-35.0) pg MCHC (31.0-37.0) g/dL RDW (11.5-15.5) % Plt Count (150-450) k/uL MPV Neutrophils % % Lymphocytes % % Monocytes % % Eosinophils % % Basophils % % Neutrophils # (1.3-7.7) k/uL Lymphocytes # (1.0-4.8) k/uL Monocytes # (0-1.0) k/uL Eosinophils # (0-0.7) k/uL Basophils # (0-0.2) k/uL Sodium (137-145) mmol/L Potassium (3.5-5.1) mmol/L Chloride (98-107) mmol/L Carbon Dioxide (22-30) mmol/L Anion Gap mmol/L BUN (9-20) mg/dL Creatinine (0.66-1.25) mg/dL Est GFR (CKD-EPI)AfAm (>60 ml/min/1.73 sqM) Est GFR (CKD-EPI)NonAf (>60 ml/min/1.73 sqM) Glucose (74-99) mg/dL Lactic Ac Sepsis Rflx Plasma Lactic Acid Malik (0.7-2.0) mmol/L Calcium (8.4-10.2) mg/dL Total Bilirubin (0.2-1.3) mg/dL AST (17-59) U/L ALT (4-49) U/L Alkaline Phosphatase (38-126) U/L Total Protein (6.3-8.2) g/dL Albumin (3.5-5.0) g/dL Urine Color Urine Appearance (Clear) Urine pH (5.0-8.0) Ur Specific [place] (1.001-1.035) Urine Protein (Negative) Urine Glucose (UA) (Negative) Urine Ketones (Negative) Urine Blood (Negative) Urine Nitrite (Negative) Urine Bilirubin (Negative) Urine Urobilinogen (<2.0) mg/dL Ur Leukocyte Esterase (Negative) Influenza Type A (PCR) Not Detected (Not Detectd) Influenza Type B (PCR) Not Detected (Not Detectd) RSV (PCR) Not Detected (Not Detectd) SARS-CoV-2 (PCR) Detected A (Not Detectd) - Radiology Data Radiology results: report reviewed, image reviewed Disposition Clinical Impression: Lower back pain Disposition: HOME SELF-CARE Instructions (If sedation given, give patient instructions): Acute Low Back Pain (ED) Additional Instructions: Return to the emergency department with any new, worsening, or concerning symptoms. Alternate with ibuprofen and Tylenol as needed for pain relief. You can also use the lidocaine patches daily as needed. Follow up with your primary care provider in 1-2 days. Prescriptions: Lidocaine 5% Patch [Lidoderm 5% Patch] 1 patch TOPICAL DAILY PRN #30 patch PRN Reason: Pain Is patient prescribed a controlled substance at d/c from ED?: No Referrals: Chris Barros DO [Primary Care Provider] - 1-2 days
[2023-05-02 11:39] LABS: Basophils % (A) 0 %; Eosinophils # (A) 0.2 k/uL (0-0.7); Eosinophils % (A) 3 %; HCT 42.2 % (39.0-53.0); HGB 14.2 gm/dL (13.0-17.5); Lymphocytes # (A) 0.4 k/uL (1.0-4.8); Lymphocytes % (A) 6 %; MCH 30.3 pg (25.0-35.0); MCHC 33.7 g/dL (31.0-37.0); MCV 89.8 fL (80.0-100.0); Mean Platelet Volume 7.6; Monocytes # (A) 0.5 k/uL (0-1.0); Monocytes % (A) 8 %; Neutrophils # (A) 4.9 k/uL (1.3-7.7); Neutrophils % (A) 80 %; Platelet Count 179 k/uL (150-450); RDW 12.9 % (11.5-15.5); WBC 6.1 k/uL (3.8-10.6)
[2023-05-02] MEDS ORDERED: SODIUM CHLORIDE 0.9% 1,000 ML IV STA (11:55)
[2023-05-02 11:59] LABS: Albumin 3.9 g/dL (3.5-5.0); Calcium 9.3 mg/dL (8.4-10.2); Potassium 4.5 mmol/L (3.5-5.1); Total Bilirubin 0.8 mg/dL (0.2-1.3); Total Protein 6.8 g/dL (6.3-8.2)
--- NOTE | 2023-05-02 13:02 | CT ---
EXAMINATION TYPE: CT abdomen pelvis w con DATE OF EXAM: 05/02/2023 COMPARISON: 02/11/2018 HISTORY: abdominal and back pain CT DLP: 1493..3 mGycm CONTRAST: CT scan of the abdomen and pelvis is performed without Oral Contrast and with IV Contrast, patient in jected with 100 mL of Isovue 300. FINDINGS: LUNG BASES-: No visible nodule. No infiltrate. LIVER/GB: No calcified gallstones. No space occupying hepatic lesion. Biliary tree is of normal ca liber. PANCREAS: No inflammation. No distinct mass. SPLEEN: No splenic enlargement. No lesion seen. ADRENALS: No nodule. No thickening. KIDNEYS/BLADDER: No hydronephrosis. Nonobstructing 2 mm calculus right kidney. 3.7 cm simple cyst mi dpole left kidney with adjacent indeterminate 2 cm lesion. Both lesions are slightly larger in size r elative to the prior study. Urinary bladder grossly unremarkable. BOWEL: Nonvisualization of the appendix Normal bowel caliber. No inflammation. GENITAL ORGANS: No gross abnormality. LYMPH NODES: No greater than 1cm abdominal or pelvic lymph nodes are appreciated. AORTA: No significant abnormality. OSSEOUS STRUCTURES: No significant abnormality is seen. OTHER: Small amount of free fluid within the pelvis. IMPRESSION: 1. Nonobstructing right-sided nephrolithiasis. 2. Indeterminate right left renal lesion is slightly larger in size relative to the prior study. Foll ow-up study in 6 months is advised.
[2023-05-02] MEDS ORDERED: KETOROLAC 15 MG/ML 1 ML VIAL IVP STA (13:17)
[2023-05-02 13:40] LABS: Appearance,Urine Clear (Clear); Bilirubin,Urine Negative (Negative); Blood,Urine Negative (Negative); Color,Urine Yellow; Glucose,Urine (UA) Negative (Negative); Ketones,Urine Negative (Negative); Leukocyte Esterase,Urine Negative (Negative); Nitrite,Urine Negative (Negative); PH, Urine 5.5 (5.0-8.0); Protein,Urine Negative (Negative); Specific Gravity,Urine 1.022 (1.001-1.035); Urobilinogen,Urine <2.0 mg/dL (<2.0)
[2023-05-02] MEDS ORDERED: traMADol 50 MG STARTER PACK 3 TAB BTL PO STA (14:03)
[2023-05-02] MEDS ORDERED: IBUPROFEN 600 MG STARTER PACK 4 TAB BTL PO STA (14:03)
[2023-05-02 15:03] VITALS: BP 118/76; PULSE 76; RESP 16; TEMP 97.9
== END 2023-05-02 15:02 | disposition home or self-care (01) ==
LOC: EC 10:47
DX: U07.1 COVID-19 (principal); M54.50 Low back pain, unspecified; N20.0 Calculus of kidney; E11.9 Type 2 diabetes mellitus without complications; I10 Essential (primary) hypertension; F17.200 Nicotine dependence, unspecified, uncomplicated; Z79.84 Long term (current) use of oral hypoglycemic drugs; Z79.82 Long term (current) use of aspirin; Z79.899 Other long term (current) drug therapy
CPT/HCPCS: 99284 ×2; 96374 ×2; 96361 ×2; 36415; 80053; 83605; 85025; 81003; 87636; 74177; J1885; Q9967

== ENCOUNTER 2024-07-28 06:39 | Day surgery (SDC) | payer BC ==
[2024-07-26 12:42] VITALS: BMI 30.7
[2024-07-28 07:13] VITALS: TEMP 97
[2024-07-28] MEDS: LIDOCAINE 1% (10MG/ML) FOR IV START INTRADERMA STA (07:14)
[2024-07-28] MEDS: IV FLUID CONTINUATION 1,000 ML IV ONE (07:14)
[2024-07-28] MEDS: LACTATED RINGERS 1,000 ML IV SCH (07:14)
[2024-07-28 07:35] LABS: Glucose,Whole Blood 174 mg/dL (70-110)
[2024-07-28] MEDS ORDERED: LIDOCAINE 1% INJ 10MG/ML (20 ML MDV) ONE (07:38)
[2024-07-28] MEDS ORDERED: PROPOFOL 10 MG/ML 20 ML VIAL IV ONE (07:38)
--- NOTE | 2024-07-28 08:00 | P.GSHP ---
History of Present Illness H&P Date: 07/28/24 Chief Complaint: Screening colonoscopy This is a 59-year-old male presents today for screening colonoscopy. Patient denies any significant GI complaints. Past Medical History Past Medical History: Chest Pain / Angina, Diabetes Mellitus, Hyperlipidemia, Hypertension History of Any Multi-Drug Resistant Organisms: None Reported Past Surgical History: Cholecystectomy, Heart Catheterization, Orthopedic Surgery Additional Past Surgical History / Comment(s): right 2nd toe amputation, eye surgery, COLONOSCOPY Past Anesthesia/Blood Transfusion Reactions: No Reported Reaction Smoking Status: Current every day smoker - Past Family History Mother Family Medical History: No Reported History Medications and Allergies Home Medications Medication Instructions Recorded Confirmed Type Spironolactone [Aldactone] 25 mg PO QAM 07/31/14 07/26/24 History metFORMIN HCL [Glucophage] 1,000 mg PO DAILY 05/18/15 07/26/24 History metFORMIN HCL [Glucophage] 500 mg PO HS 09/22/16 07/26/24 History Multivitamins, Thera [Multivitamin] 1 tab PO DAILY #30 tablet 02/14/18 07/26/24 Rx Aspirin EC [Ecotrin Low Dose] 81 mg PO DAILY 07/26/24 07/26/24 History Benazepril HCl 20 mg PO BID 07/26/24 07/26/24 History Digoxin [Lanoxin] 125 mcg PO DAILY 07/26/24 07/26/24 History Simvastatin [Zocor] 20 mg PO HS 07/26/24 07/26/24 History carvediloL [Coreg] 25 mg PO BID 07/26/24 07/26/24 History Allergies Allergy/AdvReac Type Severity Reaction Status Date / Time No Known Allergies Allergy Verified 07/28/24 07:05 Surgical - Exam Vital Signs Temp Pulse Resp BP Pulse Ox 97.0 F L 74 16 109/60 94 L 07/28/24 07:12 07/28/24 07:12 07/28/24 07:12 07/28/24 07:12 07/28/24 07:12 - General well developed, well nourished, no distress - Eyes PERRL - ENT normal pinna - Neck no masses - Respiratory normal expansion - Cardiovascular Rhythm: regular - Abdomen Abdomen: soft, non tender Results - Labs Abnormal Lab Results - Last 24 Hours (Table) 07/28/24 Range/Units 07:18 POC Glucose (mg/dL) 174 H (70-110) mg/dL Assessment and Plan Assessment: Will perform screening colonoscopy.
--- NOTE | 2024-07-28 08:02 | P.OP ---
Date of Procedure: 07/28/24 Preoperative Diagnosis: Screening colonoscopy Postoperative Diagnosis: Hemorrhoids Procedure(s) Performed: Colonoscopy Anesthesia: MAC Surgeon: Nadir Soto Pathology: none sent Condition: stable Disposition: PACU Description of Procedure: Patient was placed on the endoscopy table in the lateral position. He received IV sedation. Digital rectal exam was performed. This revealed internal/external hemorrhoids. The flexible colonoscope was then placed bhesania's past throughout the entire colon. The ileocecal valve was visualized. The cecum, ascending and transverse colon appeared normal. The descending and sigmoid colon appeared normal. Scope was brought back to the rectum and this appeared normal. Scope was withdrawn through the anus and into and external hemorrhoids were seen. Scope withdrawn from patient.
[2024-07-28 08:03] VITALS: RESP 14
[2024-07-28 08:26] VITALS: BP 102/67; PULSE 67
== END 2024-07-28 08:36 | disposition home or self-care (01) ==
LOC: ORWHC2ENDO 06:39
PROVIDERS: ATTEND Surgery
DX: Z12.11 Encounter for screening for malignant neoplasm of colon (principal); K64.4 Residual hemorrhoidal skin tags; K64.8 Other hemorrhoids; E11.9 Type 2 diabetes mellitus without complications; E78.5 Hyperlipidemia, unspecified; I10 Essential (primary) hypertension; F17.200 Nicotine dependence, unspecified, uncomplicated; Z79.84 Long term (current) use of oral hypoglycemic drugs; Z90.49 Acquired absence of other specified parts of digestive tract
CPT/HCPCS: 45378